=== PATIENT | female | born 1930 | race Caucasian/White ===

== ENCOUNTER 2018-02-11 22:51 | Inpatient (IN) | payer OTHER, MEDICARE ==
[~2018-02-11] VITALS: Ht 147.3 cm; Wt 57.7 kg
[~2018-02-11 22:51] MED LIST: ASPIRIN81 M1 PO; CALCIUM + D 6001 TAB PO; COLACE100 MG PO; FISH OIL CONC1000 MG PO; GLUCOSAMINE CHO1 CA1 PO; HYZAAR 12.5 MG-1 TAB PO; LEVOTHYROXINE0.05 MG PO; LOPRESSOR 25MG25 MG PO; MULTIVITAMIN1 TAB PO; NORVASC 5MG TAB5 MG PO; XANAX0.5 MG PO; ZOCOR 40MG TAB40 MG PO
--- NOTE | 2018-02-11 23:55 | ED UPPER/LOWER EXTREMITY COMPL ---
History of Present Illness General Chief Complaint: Lower Extremity Problems Stated Complaint: "PAIN IN UPPER RT LEG" Source: patient, family, old records Exam Limitations: no limitations Vital Signs & Intake/Output Vital Signs & Intake/Output Vital Signs Date Time Temp Pulse Resp B/P B/P Pulse O2 O2 Flow FiO2 Mean Ox Delivery Rate 02/12 1123 97.3 53 18 112/50 95 Room Air 02/12 0829 97.4 63 18 138/50 02/12 0828 97.4 63 18 138/50 02/12 0828 97.4 63 18 138/50 02/12 0824 97.4 63 18 138/50 96 Room Air 02/12 0614 97.2 91 20 129/83 95 Room Air 02/12 0321 86 20 146/60 95 Room Air 02/12 0124 59 20 110/60 96 Room Air 02/12 0105 Room Air 02/11 2307 98.6 65 18 176/55 96 Room Air ED Intake and Output 02/12 0000 02/11 1200 Intake Total Output Total Balance Patient 128 lb Weight Weight Estimated Measurement Method Allergies Coded Allergies: NO KNOWN ALLERGIES (01/24/16) Triage Note: RECEIVED 87 YO FEMALE C/O SEVERE RIGHT GROIN AREA PAIN RADIATING TO RIGHT THIGH, STARTED WEDNESDAY R THIGH AREA PAIN PRIMARILY. PT SEEN DR CAMPOS WEDNESDAY, XRAY DONE AND PRESCRIBED MELOXICAM. PT REPORTS PAIN BECAME SEVERE TONIGHT. Triage Nurses Notes Reviewed? yes HPI: On Wednesday the patient noticed that she was having pain in her right hip all moving her right foot from the gas pedal to the brake pedal. By Wednesday the pain escalated to the point that it hurts to move. Patient went to see Howard Sotomayor MD. She had x-rays in his office which showed arthritis. She was put on Mobic and sent home. Patient was told that the next absolute be a cortisone injection followed by an MRI if the Mobic didn't work. Tonight the patient was watching TV and she moved her foot off the ottoman to go to bed when she had a sudden increase in pain. Now she has pain with any movement. The pain is radiating down into her right thigh. The pain is constant. The pain is 10 out of 10. (Kathy SMITH,Toy Giraldo) Reconcile Medications Amlodipine Besylate (Norvasc) 5 MG TABLET 1 TAB PO DAILY BP (Reported) Amoxicillin 500 MG CAPSULE 4 CAP PO AD PRN 1 HR PRIOR TO DENTAL APPT ( Reported) Aspirin (Ecotrin*) 81 MG TABLET.DR 1 TAB PO DAILY HEART/BLOOD (Reported) Calcium Carbonate/Vitamin D3 (Calcium 500 + D Tablet) (Unknown Strength) TABLET (Unknown Dose) PO DAILY SUPPLEMENT (Reported) Docusate Sodium (Colace) 100 MG CAPSULE 1 CAP PO DAILY STOOL SOFTENER ( Reported) Gluc 2KCL/Chondr/Cole Hy/Hy AC (Glucosamine & Chondroitin Cap) (Unknown Strength ) CAPSULE (Unknown Dose) PO DAILY SUPPLEMENT (Reported) Levothyroxine Sodium 75 MCG TABLET 1 TAB PO DAILY THYROID (Reported) Losartan/Hydrochlorothiazide (Losartan-Hctz 100-12.5 MG Tab) 100 MG-12.5 MG TABLET 1 TAB PO DAILY BP (Reported) Meloxicam 15 MG TABLET 1 TAB PO DAILY PAIN/INFLAMMATION (Reported) Metoprolol Tartrate 25 MG TABLET 1 TAB PO BID HEART/BP (Reported) Multiple Vitamin (Multivitamins) 1 EACH TABLET 1 TAB PO DAILY SUPPLEMENT ( Reported) [place]-3S/Dha/Epa/Fish Oil (Fish Oil 1,000 MG Softgel) (Unknown Strength) CAPSULE (Unknown Dose) PO DAILY SUPPLEMENT (Reported) Simvastatin (Zocor*) 40 MG TABLET 1 TAB PO DAILY CHOLESTEROL (Reported) (Danay SMITH,Quinten Veras) Past History Travel History Traveled to [place] past 21 day No Medical History Any Pertinent Medical History? 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 No (Kathy SMITH,Toy Giraldo) Review of Systems Review of Systems Constitutional: Reports: no symptoms. Respiratory: Reports: no symptoms. Cardiovascular: Reports: no symptoms. Musculoskeletal: Reports: see HPI. Neurological/Psychological: Reports: no symptoms. Immunological: Reports: no symptoms. (Kathy SMITH,Toy Giraldo) Physical Exam Physical Exam General Appearance: well developed/nourished, alert, awake, anxious, moderate distress Head: atraumatic, normal appearance Eyes: Bilateral: PERRL, EOMI. Ears, Nose, Throat: normal pharynx, normal ENT inspection, hearing grossly normal Neck: normal inspection, supple, full range of motion (Kathy SMITH,Toy Giraldo) Progress Differential Diagnosis: dislocation, fracture, sprain, tendon injury Plan of Care: Orders Procedure Date/time Status Regular Diet 02/12 B Active Admit to inpatient 02/12 1309 Active PT Evaluate & Treat 02/12 253 Active URINALYSIS 02/12 253 Complete COMPREHENSIVE METABOLIC PANEL 02/12 253 Complete CBC WITHOUT DIFFERENTIAL 02/12 253 Complete CASE MANAGEMENT CONSULT 02/12 253 Active Theraputic Activities 15 Min 02/12 UNK Complete MOBILITY GOAL STATUS 02/12 UNK Complete MOBILITY CURRENT STATUS 02/12 UNK Complete PT EVAL MOD COMPLEX 30 MIN 02/12 UNK Complete Current Medications Sig/Alise Start time Last Medication Dose Stop Time Status Admin Atorvastatin Calcium 20 MG 1700 02/12 1700 UNVr (Lipitor) Amlodipine Besylate 5 MG DAILY 02/12 0900 UNVr 02/12 (Norvasc) 0828 Aspirin 81 MG DAILY 02/12 0900 UNVr 02/12 (Aspirin) 0829 Hydrochlorothiazide 25 MG DAILY 02/12 0900 UNVr 02/12 (Hydrodiuril) 0828 Losartan Potassium 100 MG DAILY 02/12 0900 UNVr 02/12 (Cozaar) 0829 Metoprolol Tartrate 25 MG BID 02/12 0900 UNVr 02/12 (Lopressor) 0828 Levothyroxine Sodium 0.05 MG DAILY AC 02/12 0700 UNVr 02/12 (Synthroid) 0829 Laboratory Tests 02/12/18 0625: Urine Color YEL, Urine Clarity HAZY H, Urine pH 6.5, Ur Specific [place] 1.020, Urine Protein NEG, Urine Ketones NEG, Urine Nitrite NEG, Urine Bilirubin NEG, Urine Urobilinogen 0.2, Ur Leukocyte Esterase LARGE H, Ur Microscopic SEDIMENT EXAMINED, Urine WBC 1-3 H, Ur Epithelial Cells FEW, Urine Bacteria FEW H, Urine Hemoglobin NEG, Urine Glucose NEG 02/12/18 0320: Anion Gap 13, Estimated GFR 59 L, BUN/Creatinine Ratio 38.9 H, Glucose 108 H, Calcium 10.0, Total Bilirubin 0.5, AST 28, ALT 35, Alkaline Phosphatase 70, Total Protein 6.9, Albumin 4.3, Globulin 2.6, Albumin/Globulin Ratio 1.7, CBC w Diff NO MAN DIFF REQ, RBC 3.81 L, MCV 99.3 H, MCH 33.2 H, MCHC 33.5, RDW 13.8 , MPV 8.8, Gran % 85.5 H, Lymphocytes % 9.6 L, Monocytes % 3.9, Eosinophils % 0.4, Basophils % 0.6, Absolute Granulocytes 9.4 H, Absolute Lymphocytes 1.1 L, Absolute Monocytes 0.4, Absolute Eosinophils 0, Absolute Basophils 0.1 Diagnostic Imaging: Viewed by Me: CT Scan. Discussed w/RAD: CT Scan. Radiology Impression: PATIENT: VIVIAN BRISENO PRESENT AGE: 87 PATIENT ACCOUNT NO: [id number] : [birth year] LOCATION: [facility] ORDERING PHYSICIAN: Toy Chavez MD SERVICE DATE: 02/11/18 EXAM TYPE: CAT - CT PELVIS WO IV CONTRAST EXAMINATION: CT PELVIS WITHOUT CONTRAST CLINICAL INFORMATION: Pain with flexion of right hip. COMPARISON: None TECHNIQUE : Helical scanning was performed with submillimeter collimation through the pelvis. Sagittal and coronal multiplanar 2-D reconstructions were obtained. DLP: 930 mGy-cm FINDINGS: PELVIS: No pelvic mass. The bladder is unremarkable. The visualized bowel demonstrates no inflammatory changes. No pelvic lymphadenopathy. Diffuse atherosclerotic calcifications of the vasculature. No hip joint effusion. No abdominal wall hernia. OSSEOUS STRUCTURES: No acute fracture or malalignment. The femoral heads are well-seated within their acetabula. Mild degenerative changes of both hips with joint space narrowing. Chondrocalcinosis present. Small osteophytes. Moderate degenerative changes of the lower lumbar spine. The sacroiliac joints and pubic symphysis are intact. Transitional anatomy of the lumbosacral junction. IMPRESSION: No acute osseous abnormality. Mild degenerative changes of both hips. Prominent degenerative changes at the lower lumbar spine. DICTATED BY: Atiya SMITH,Caio DATE/TIME DICTATED:02/12/18123 PHYSICAL THERAPIST AIDE:BERNA DATE/TIME TRANSCRIBED:123 CONFIDENTIAL, DO NOT COPY WITHOUT APPROPRIATE AUTHORIZATION. < Electronically signed in Other Vendor System> SIGNED BY: Atiya SMITH, Caio 02/12/18 0130 Hand-Off Endorsed To: Quinten Jon MD Endorsed Time: 0700 Pending: consult Comments: No relief with Tylenol with codeine. Patient still unable to ambulate after Percocet. At this point patient will remain in the emergency department for physical therapy as well as case management consultations. (Toy Chavez MD) Comments: 02/12/2018 7:08:43 AM patient signed out to me by Dr. 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 (Quinten Jon MD) Departure Departure Disposition: STILL A PATIENT Condition: Stable Referrals: Wally Pace MD (PCP/Family) Departure Forms: Customer Survey General Discharge Information (Toy Chavez MD) Departure Clinical Impression Primary Impression: Intractable pain Secondary Impressions: Hip pain Qualifiers: Laterality: right Qualified Code: M25.551 - Pain in right hip Unable to ambulate Admission Note Spoke With: Hiwot SMITH,Earl Tang Documentation of Exam: Documentation of any treatments & extenuating circumstances including Concerns Regarding Discharge (functional status, medication knowledge or non-compliance, living conditions, etc.) that warrant an admission rather than observation: Patient is experiencing severe right hip and groin pain with attempts to ambulate. She has been unable to do anything more than stand and pivot even with narcotic pain relievers orally. I do not feel this patient is capable of being discharged home given her inability to ambulate. She will very likely return in worse clinical condition including injury sustained due to falling. She would also be unable to comply with outpatient treatment or fulfill activities of daily living. I feel she requires hospitalization for pain control and physical therapy consultation. Orthopedic consultation should be considered as well. Additional imaging studies of the area of pain should also be considered. Given this patient's advanced age and medical comorbidities I predict her treatment and recovery will be prolonged and potentially complicated. I feel she will require a multiple day hospitalization. (Quinten Jon MD)
--- NOTE | 2018-02-12 01:30 | CT SCAN REPORT ---
EXAMINATION: CT PELVIS WITHOUT CONTRAST CLINICAL INFORMATION: Pain with flexion of right hip. COMPARISON: None TECHNIQUE: Helical scanning was performed with submillimeter collimation through the pelvis. Sagittal and coronal multiplanar 2-D reconstructions were obtained. DLP: 930 mGy-cm FINDINGS: PELVIS: No pelvic mass. The bladder is unremarkable. The visualized bowel demonstrates no inflammatory changes. No pelvic lymphadenopathy. Diffuse atherosclerotic calcifications of the vasculature. No hip joint effusion. No abdominal wall hernia. OSSEOUS STRUCTURES: No acute fracture or malalignment. The femoral heads are well-seated within their acetabula. Mild degenerative changes of both hips with joint space narrowing. Chondrocalcinosis present. Small osteophytes. Moderate degenerative changes of the lower lumbar spine. The sacroiliac joints and pubic symphysis are intact. Transitional anatomy of the lumbosacral junction. IMPRESSION: No acute osseous abnormality. Mild degenerative changes of both hips. Prominent degenerative changes at the lower lumbar spine.
[2018-02-12 03:27] LABS: ABSOLUTE BASOPHIL COUNT 0.1 /CUMM (0.0-0.2); ABSOLUTE EOSINOPHIL COUNT 0 /CUMM (0.0-0.7); ABSOLUTE GRANULOCYTE CT 9.4 /CUMM (1.4-6.5); ABSOLUTE LYMPH COUNT 1.1 /CUMM (1.2-3.4); ABSOLUTE MONOCYTE COUNT 0.4 /CUMM (0.10-0.60); BASOPHIL % 0.6 % (0.0-2.0); EOSINOPHIL % 0.4 % (0-5); GRANULOCYTE % 85.5 % (42.2-75.2); HEMATOCRIT 37.8 % (37-47); MEAN CORPUSCULAR HGB 33.2 PG (27.0-31.0); MEAN CORPUSCULAR HGB CONC 33.5 G/DL (33.0-37.0); MEAN CORPUSCULAR VOLUME 99.3 FL (81.0-99.0); MEAN PLATELET VOLUME 8.8 FL (7.4-10.4); PLATELET COUNT 244 /CUMM (130-400); RBC DISTRIBUTION WIDTH 13.8 % (11.5-14.5); RED BLOOD CELL CT 3.81 /CUMM (4.20-5.40)
[2018-02-12] MEDS ORDERED: LEVOTHYROXINE75 MCG PO (12:23)
[2018-02-12] MEDS ORDERED: LOSARTAN-HCTZ1 EACH PO (12:24)
[2018-02-12] MEDS ORDERED: CALCIUM 500 +1 EAC5 PO (12:24)
[2018-02-12] MEDS ORDERED: GLUCOSAMINE &1 EAC1 PO (12:24)
[2018-02-12] MEDS ORDERED: FISH OIL 1,0001 EAC5 PO (12:25)
[2018-02-12] MEDS ORDERED: ASPIRIN EC81 M1 PO (12:25)
[2018-02-12] MEDS ORDERED: ZOCOR40 M1 PO (12:25)
[2018-02-12] MEDS ORDERED: MULTIVITAMINS1 EAC9 PO (12:25)
[2018-02-12] MEDS ORDERED: NORVASC5 M1 PO (12:26)
[2018-02-12] MEDS ORDERED: COLACE100 M1 PO (12:26)
[2018-02-12] MEDS ORDERED: METOPROLOL TART25 M1 PO (12:26)
[2018-02-12] MEDS ORDERED: MELOXICAM15 M1 PO (12:27)
[2018-02-12] MEDS ORDERED: AMOXICILLIN500 M2 PO (12:27)
--- NOTE | 2018-02-12 16:39 | History & Physical ---
Evelin Gregorio 02/12/18 1622: General Information and HPI MD Statement: I have seen and personally examined VIVIAN BRISENO and documented this H&P. The patient is a 87 year old F who presented with a patient stated chief complaint of [right leg pain]. Source of Information: patient Exam Limitations: no limitations History of Present Illness: Patient is a 87-year-old female with past medical history of breast cancer status post mastectomy, osteoarthritis, cataracts,coronary artery disease, hypertension, hypercholesterolemia, and hypothyroidism who was brought in by ambulance for severe right groin pain radiating to her right thigh. Patient reports that she started having pain in the right groin last Wednesday while she was driving her car. She noticed she had severe pain moving her right foot from the gas pedal to the brake pedal. She ignored it initially thinking it was just regular aches and pains. However by Wednesday she was having so much pain that it was difficult to ambulate. She saw , the next day for the same. X-rays done at his office showed arthritis and patient was prescribed Mobic. He also told her that she might need a cortisone shot and an MRI if symptoms don't get better. Mobic did relieve her symptoms to some extent, however the pain never went away completely. Today patient had intense pain while trying to move from her chair to the bed. She denies any numbness, tingling, nausea or vomiting, chest pain, palpitations, fevers, chills, urinary or bowel symptoms. Pain is located over her right groin radiating down her right thigh, 10 / 10 in intensity. She denies any trauma, falls, twisting or turning off her legs. CT scan done in the ED showed no abnormality, mild degenerative changes of both hips and prominent degenerative site changes of her lower spine. Allergies/Medications Allergies: Coded Allergies: NO KNOWN ALLERGIES (01/24/16) Home Med list Amlodipine Besylate (Norvasc) 5 MG TABLET 1 TAB PO DAILY BP (Reported) Amoxicillin 500 MG CAPSULE 4 CAP PO AD PRN 1 HR PRIOR TO DENTAL APPT ( Reported) Aspirin (Ecotrin*) 81 MG TABLET.DR 1 TAB PO DAILY HEART/BLOOD (Reported) Calcium Carbonate/Vitamin D3 (Calcium 500 + D Tablet) (Unknown Strength) TABLET (Unknown Dose) PO DAILY SUPPLEMENT (Reported) Docusate Sodium (Colace) 100 MG CAPSULE 1 CAP PO DAILY STOOL SOFTENER ( Reported) Gluc 2KCL/Chondr/Cole Hy/Hy AC (Glucosamine & Chondroitin Cap) (Unknown Strength ) CAPSULE (Unknown Dose) PO DAILY SUPPLEMENT (Reported) Levothyroxine Sodium 75 MCG TABLET 1 TAB PO DAILY THYROID (Reported) Losartan/Hydrochlorothiazide (Losartan-Hctz 100-12.5 MG Tab) 100 MG-12.5 MG TABLET 1 TAB PO DAILY BP (Reported) Meloxicam 15 MG TABLET 1 TAB PO DAILY PAIN/INFLAMMATION (Reported) Metoprolol Tartrate 25 MG TABLET 1 TAB PO BID HEART/BP (Reported) Multiple Vitamin (Multivitamins) 1 EACH TABLET 1 TAB PO DAILY SUPPLEMENT ( Reported) [place]-3S/Dha/Epa/Fish Oil (Fish Oil 1,000 MG Softgel) (Unknown Strength) CAPSULE (Unknown Dose) PO DAILY SUPPLEMENT (Reported) Simvastatin (Zocor*) 40 MG TABLET 1 TAB PO DAILY CHOLESTEROL (Reported) Past History Travel History Traveled to [place] past 21 day No Medical History Neurological: NONE EENT: NONE Cardiovascular: hypertension, hyperlipidemia Respiratory: NONE Gastrointestinal: NONE Hepatic: NONE Renal: NONE Musculoskeletal: NONE Psychiatric: NONE Endocrine: hypothyroidism Blood Disorders: NONE Cancer(s): NONE 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 EENTM: Reports: no symptoms. Cardiovascular: Reports: no symptoms. Respiratory: Reports: no symptoms. GI: Reports: no symptoms. Genitourinary: Reports: no symptoms. Musculoskeletal: Reports: muscle pain, muscle stiffness. Skin: Reports: no symptoms. Exam & Diagnostic Data Last 24 Hrs of Vital Signs/I&O Vital Signs Date Time Temp Pulse Resp B/P B/P Pulse O2 O2 Flow FiO2 Mean Ox Delivery Rate 02/12 1123 97.3 53 18 112/50 95 Room Air 02/12 0829 97.4 63 18 138/50 02/12 0828 97.4 63 18 138/50 02/12 0828 97.4 63 18 138/50 02/12 0824 97.4 63 18 138/50 96 Room Air 02/12 0614 97.2 91 20 129/83 95 Room Air 02/12 0321 86 20 146/60 95 Room Air 02/12 0124 59 20 110/60 96 Room Air 02/12 0105 Room Air 02/11 2307 98.6 65 18 176/55 96 Room Air Intake & Output 02/12 1600 02/12 0800 02/12 0000 Intake Total 240 Output Total Balance 240 Intake, Oral 240 Patient 58.06 kg Weight Weight Estimated Measurement Method Physical Exam General Appearance Alert, Oriented X3, Cooperative, No Acute Distress Skin No Rashes, No Breakdown, No Significant Lesion Skin Temp/Moisture Exam: Warm/Dry HEENT Atraumatic, PERRLA, EOMI Neck Supple Cardiovascular Regular Rate, Normal S1, Normal S2, No Murmurs Lungs Clear to Auscultation, Normal Air Movement Abdomen Normal Bowel Sounds Neurological Normal Speech, Normal Tone, Sensation Intact, Cranial Nerves 3-12 NL, Reflexes 2+, severe restriction of motion of the right lower extremity. Extremities No Clubbing, No Cyanosis, No Edema Last 24 Hrs of Labs/Joey: Laboratory Tests 02/12/18 0625: Urine Color YEL, Urine Clarity HAZY H, Urine pH 6.5, Ur Specific [place] 1.020, Urine Protein NEG, Urine Ketones NEG, Urine Nitrite NEG, Urine Bilirubin NEG, Urine Urobilinogen 0.2, Ur Leukocyte Esterase LARGE H, Ur Microscopic SEDIMENT EXAMINED, Urine WBC 1-3 H, Ur Epithelial Cells FEW, Urine Bacteria FEW H, Urine Hemoglobin NEG, Urine Glucose NEG 02/12/18 0320: Anion Gap 13, Estimated GFR 59 L, BUN/Creatinine Ratio 38.9 H, Glucose 108 H, Calcium 10.0, Total Bilirubin 0.5, AST 28, ALT 35, Alkaline Phosphatase 70, Total Protein 6.9, Albumin 4.3, Globulin 2.6, Albumin/Globulin Ratio 1.7, CBC w Diff NO MAN DIFF REQ, RBC 3.81 L, MCV 99.3 H, MCH 33.2 H, MCHC 33.5, RDW 13.8 , MPV 8.8, Gran % 85.5 H, Lymphocytes % 9.6 L, Monocytes % 3.9, Eosinophils % 0.4, Basophils % 0.6, Absolute Granulocytes 9.4 H, Absolute Lymphocytes 1.1 L, Absolute Monocytes 0.4, Absolute Eosinophils 0, Absolute Basophils 0.1 Assessment/Plan Assessment: Patient is a 87-year-old female with past medical history of breast cancer status post mastectomy, osteoarthritis, cataracts,coronary artery disease, hypertension, hypercholesterolemia, and hypothyroidism who was brought in by ambulance for severe right groin pain radiating to her right thigh. CT scan done in the ED showed no abnormality, mild degenerative changes of both hips and prominent degenerative site changes of her lower spine. Assessment and plan #1 Right hip/groin pain: Differentials could be avascular necrosis, osteoarthritis, bursitis, impingement, metastasis from breast cancer -Admit patient to [facility] -Vitals per protocol -CT shows evidence of degenerative changes in both hips. No fractures noted. -MRI lumbar spine/hip ordered -X-ray femurs ordered a -Optimal pain control with IV morphine and Percocet -Orthopedic consult appreciated -Patient might need cortisone shots if there is no improvement in pain -Physical therapy consult -Placement for short-term rehabilitation. #2 Hyperkalemia likely secondary to dehydration -Monitor BMP -Gentle hydration with IV normal saline Continue home medications for hypertension, hypothyroidism and hypercholesterolemia DVT prophylaxis subcutaneous Lovenox Full code Severe pain pathway. As Ranked By This Provider Problem List: 1. Intractable pain 2. Hip pain Qualifiers Laterality: right Qualified Code: M25.551 - Pain in right hip Core Measures/Misc (07/18) Acute Coronary Syndrome ACS Diagnosis: No Congestive Heart Failure Congestive Heart Failure Diagnosis No Cerebrovascular Accident CVA/TIA Diagnosis: No VTE (View Protocol) VTE Risk Factors Age>40 No Mechanical VTE Prophylaxis d/t N/A MechProphylax Ordered No VTE Pharm Prophylaxis d/t NA PharmProphylax ordered Sepsis (View protocol) Sepsis Present: No [facility]35: Attending MD Review Statement Attending Statement Attending MD Statement: examined this patient, discuss w/resident/PA/CHAMBER WALKER, agreed w/resident/PA/CHAMBER WALKER, discussed with family, reviewed EMR data (avail), discussed with nursing, discussed with case mgmt, reviewed images, amended to note Attending Assessment/Plan: SEEN AND EXAMINED IN THE ED INDEPENDENTLY Pt with above issues now with severe intractable pain of the hip Intractable pain Gait difficulty REC Rec MRI LS spine LS spine and femur xray bone scan Pain control
[2018-02-12 19:56] VITALS: BP 152/72
--- NOTE | 2018-02-12 20:44 | Cons- Orthopedic ---
General Information and HPI Consulting Request Date of Consult: 02/12/18 Requested By: Wm Varela MD Reason for Consult: Right groin pain Source of Information: patient, old records Exam Limitations: no limitations History of Present Illness: This patient is an 87-year-old woman who was admitted with a history of severe right groin pain. She was seen in our office recently for right thigh pain. Evaluation in the office revealed mild degenerative changes of the right hip. No lesions were noted in the femur or hip. Symptoms at that time appeared to be out of proportion to findings concerning the hip. She describes radiation of pain down the leg. Most of the pain is isolated to the right thigh and groin. Weightbearing aggravated symptoms. At the time of the previous office visit, patient was prescribed meloxicam. She states that the medication did help but she had a sudden increase in symptoms while sitting in a car Allergies/Medications Allergies: Coded Allergies: NO KNOWN ALLERGIES (01/24/16) Home Med List: Amlodipine Besylate (Norvasc) 5 MG TABLET 1 TAB PO DAILY BP (Reported) Amoxicillin 500 MG CAPSULE 4 CAP PO AD PRN 1 HR PRIOR TO DENTAL APPT ( Reported) Aspirin (Ecotrin*) 81 MG TABLET.DR 1 TAB PO DAILY HEART/BLOOD (Reported) Calcium Carbonate/Vitamin D3 (Calcium 500 + D Tablet) (Unknown Strength) TABLET (Unknown Dose) PO DAILY SUPPLEMENT (Reported) Docusate Sodium (Colace) 100 MG CAPSULE 1 CAP PO DAILY STOOL SOFTENER ( Reported) Gluc 2KCL/Chondr/Cole Hy/Hy AC (Glucosamine & Chondroitin Cap) (Unknown Strength ) CAPSULE (Unknown Dose) PO DAILY SUPPLEMENT (Reported) Levothyroxine Sodium 75 MCG TABLET 1 TAB PO DAILY THYROID (Reported) Losartan/Hydrochlorothiazide (Losartan-Hctz 100-12.5 MG Tab) 100 MG-12.5 MG TABLET 1 TAB PO DAILY BP (Reported) Meloxicam 15 MG TABLET 1 TAB PO DAILY PAIN/INFLAMMATION (Reported) Metoprolol Tartrate 25 MG TABLET 1 TAB PO BID HEART/BP (Reported) Multiple Vitamin (Multivitamins) 1 EACH TABLET 1 TAB PO DAILY SUPPLEMENT ( Reported) Caret-3S/Dha/Epa/Fish Oil (Fish Oil 1,000 MG Softgel) (Unknown Strength) CAPSULE (Unknown Dose) PO DAILY SUPPLEMENT (Reported) Simvastatin (Zocor*) 40 MG TABLET 1 TAB PO DAILY CHOLESTEROL (Reported) Past History Medical History Blood Transfusion Hx: Yes Neurological: TREMORS EENT: cataracts Cardiovascular: hypertension, hyperlipidemia Respiratory: NONE Gastrointestinal: constipation Hepatic: NONE Renal: NONE Musculoskeletal: ARTHRITIS Psychiatric: NONE Endocrine: hypothyroidism Blood Disorders: NONE Cancer(s): breast cancer [employer]PER[employer] INSPECTION/Reproductive: NONE Surgical History Pertinent Surgical History: LEFT MASTECTOMY BILAT KNEE REPLACEMENTS HYSTERECTOMY CATARACT BONE SPUR/BUNIONECTOMY L CARPAL TUNNEL REPAIR TONSILLECTOMY Psychosocial History Where Do You Live? Home Smoking Status: Never Smoked ETOH Use: denies use Illicit Drug Use: denies illicit drug use Exam & Diagnostic Data Vital Signs and I&O Vital Signs Date Time Temp Pulse Resp B/P B/P Pulse O2 O2 Flow FiO2 Mean Ox Delivery Rate 02/13 1956 97.8 71 18 152/72 95 Room Air 02/12 1807 97.9 68 18 144/60 95 Room Air 02/12 1123 97.3 53 18 112/50 95 Room Air 02/12 0829 97.4 63 18 138/50 02/12 0828 97.4 63 18 138/50 02/12 0828 97.4 63 18 138/50 02/12 0824 97.4 63 18 138/50 96 Room Air 02/12 0614 97.2 91 20 129/83 95 Room Air 02/12 0321 86 20 146/60 95 Room Air 02/12 0124 59 20 110/60 96 Room Air 02/12 0105 Room Air 02/11 2307 98.6 65 18 176/55 96 Room Air Intake & Output 02/12 1600 02/12 0800 02/12 0000 02/11 1600 02/11 0800 02/11 0000 Intake Total 240 Output Total Balance 240 Intake, Oral 240 Patient 128 lb Weight Weight Estimated Measurement Method Physical Exam: The patient was examined while in bed. She answered questions appropriately. She has a tremor. Examination the right lower extremity revealed no rotatory deformity. No leg length discrepancy. She did not hold the leg in any unnatural position. Rotation of the right hip causes some apprehension but no reproduction of her pain in the groin. Straight leg raise also causes apprehension but no definite straight leg raise on the right or the left. Calf is soft and nontender. Normal gross sensation and palpable pulses distally which appear to be symmetric. No tenderness of the lumbar spine Imaging Results: Reviewed the CT scan that was done on admission. This study revealed some mild degenerative changes of the hip. No other definite lesions. Assessment/Plan Assessment/Plan Right groin and thigh pain-though patient has some osteoarthritis of her right hip, the severity of his symptoms do not match the radiographic findings or physical exam findings in regards to the hip itself. Concern is that the source of her right thigh and groin pain may be from her lumbar spine. Would recommend obtaining plain x-rays of the lumbar spine with consideration of obtaining MRI to assess for foraminal stenosis. Patient does have degenerative changes of the lumbar spine. Also, with her previous medical history, further imaging should be done in order to rule out other lesion Consult Acknowledgment - Thank you for your consult request. Attending MD Review Statement Attending Statement Attending MD Statement: examined this patient, discuss w/resident/PA/CREAM CHEESE MAKER
[2018-02-12 22:00] VITALS: BP 148/60
[2018-02-13 08:45] LABS: ABSOLUTE BASOPHIL COUNT 0 /CUMM (0.0-0.2); ABSOLUTE EOSINOPHIL COUNT 0.1 /CUMM (0.0-0.7); ABSOLUTE GRANULOCYTE CT 3.6 /CUMM (1.4-6.5); ABSOLUTE LYMPH COUNT 1.9 /CUMM (1.2-3.4); ABSOLUTE MONOCYTE COUNT 0.7 /CUMM (0.10-0.60)
[2018-02-13 08:53] LABS: BASOPHIL % 0.6 % (0.0-2.0); EOSINOPHIL % 1.4 % (0-5); GRANULOCYTE % 57.3 % (42.2-75.2); MEAN CORPUSCULAR HGB 33.8 PG (27.0-31.0); MEAN CORPUSCULAR VOLUME 99.3 FL (81.0-99.0); PLATELET COUNT 208 /CUMM (130-400); RBC DISTRIBUTION WIDTH 13.2 % (11.5-14.5); RED BLOOD CELL CT 3.28 /CUMM (4.20-5.40); WHITE BLOOD CELL COUNT 6.3 /CUMM (4.8-10.8)
[2018-02-13 08:57] LABS: HEMATOCRIT 32.5 % (37-47)
--- NOTE | 2018-02-13 10:34 | PN- Housestaff ---
Dusty SMITH,[facility] 02/13/18 1034: Subjective Follow-up For: Pelvic pain Subjective: No acute events. Patient states she stills has difficulty lifting her R thigh. Review of Systems Constitutional: Reports: see HPI. Objective Last 24 Hrs of Vital Signs/I&O Vital Signs Date Time Temp Pulse Resp B/P B/P Pulse O2 O2 Flow FiO2 Mean Ox Delivery Rate 02/13 1227 Room Air 02/13 0859 53 108/50 02/13 0858 53 108/50 02/13 0858 53 108/50 02/12 2200 98.4 68 18 148/60 96 Room Air 02/12 2148 68 148/60 02/12 1956 97.8 71 18 152/72 95 Room Air 02/12 1807 97.9 68 18 144/60 95 Room Air Intake & Output 02/13 1600 02/13 0800 02/13 0000 Intake Total 120 240 Output Total 200 300 Balance -80 -60 Intake, Oral 120 240 Number 0 Bowel Movements Output, Urine 200 300 Patient 127 lb Weight Weight Bed scale Measurement Method Physical Exam General Appearance: Alert, Oriented X3, Cooperative Cardiovascular: Regular Rate, Normal S1, Normal S2 Lungs: Clear to Auscultation, Normal Air Movement Abdomen: Normal Bowel Sounds, Soft, No Tenderness Extremities: LLE 5/5 strength. Patient unable to rase R leg. Plantar flexion and extension of R foot normal. Vascular: 2+ radial pulses. Assessment/Plan Assessment: A: 87-year-old female with past medical history of breast cancer status post mastectomy, osteoarthritis, cataracts,coronary artery disease, hypertension, hypercholesterolemia, and hypothyroidism who was brought in by ambulance for severe right groin pain radiating to her right thigh. CT scan done in the ED showed no abnormality, mild degenerative changes of both hips and prominent degenerative site changes of her lower spine. Assessment and plan #1 Right hip/groin pain: Differentials could be avascular necrosis, osteoarthritis, bursitis, impingement, metastasis from breast cancer -CT shows evidence of degenerative changes in both hips. No fractures noted. -f/u MRI lumbar spine/hip -f/u b/l X-ray femurs -f/u pain control -f/u ortho consult -Physical therapy consult -Placement for short-term rehabilitation. #2 Hyperkalemia likely secondary to dehydration - resoled -Monitor BMP -Gentle hydration with IV normal saline #hyponaremia Na 135 -cont to monitor #Continue home medications for hypertension, hypothyroidism and hypercholesterolemia #DVT prophylaxis subcutaneous Lovenox #Full code Problem List: 1. Hip pain Pain Ratin Pain Location: R groin Pain Goal: Pain 4 or less Pain Plan: pain pathway Tomorrow's Labs & Rationales: CBC Hiwot SMITH,[facility] 02/13/18 1249: Attending MD Review Statement Attending Statement Attending MD Statement: examined this patient, discuss w/resident/PA/RECOVERY AUDITOR, agreed w/resident/PA/RECOVERY AUDITOR, discussed with family, reviewed EMR data (avail), discussed with nursing, discussed with case mgmt, reviewed images, amended to note Attending Assessment/Plan: Pt with above issues now with severe intractable pain of the hip Intractable pain Gait difficulty REC Rec MRI LS spine LS spine and femur xray bone scan Pain control
--- NOTE | 2018-02-13 11:37 | RADIOLOGY REPORT ---
EXAMINATION: XR FEMUR, LEFT XR FEMUR, RIGHT CLINICAL INFORMATION: Hip pain. Assess for fracture, metastatic disease. Prior history breast cancer. COMPARISON: CT pelvis 02/12/2018. TECHNIQUE: Each femur is imaged in AP x2, frog lateral, and crosstable lateral projections. There are a total of 8 views, 4 for each side. FINDINGS: There is no fracture or dislocation. Mild narrowing superior medial right hip joint is seen. There is no erosive change or chondrocalcinosis. There is borderline spurring from both greater trochanters. The bilateral femoral shafts are unremarkable. There is prior bilateral knee arthroplasty. The hardware appears intact. There is no osteolysis. There may be trace suprapatellar effusion on the left. No significant effusion seen. IMPRESSION: No fracture, dislocation, or destructive process.
[2018-02-13 15:18] VITALS: BP 126/56
[2018-02-13 21:24] VITALS: BP 124/68
[2018-02-14 06:53] VITALS: BP 142/62
[2018-02-14 08:27] LABS: ABSOLUTE BASOPHIL COUNT 0 /CUMM (0.0-0.2); ABSOLUTE EOSINOPHIL COUNT 0.1 /CUMM (0.0-0.7); ABSOLUTE MONOCYTE COUNT 0.6 /CUMM (0.10-0.60); BASOPHIL % 0.3 % (0.0-2.0); MEAN PLATELET VOLUME 8.8 FL (7.4-10.4)
[2018-02-14 08:49] LABS: ABSOLUTE GRANULOCYTE CT 7.4 /CUMM (1.4-6.5); ABSOLUTE LYMPH COUNT 1.5 /CUMM (1.2-3.4); EOSINOPHIL % 0.8 % (0-5); GRANULOCYTE % 76.4 % (42.2-75.2); PLATELET COUNT 245 /CUMM (130-400); RBC DISTRIBUTION WIDTH 13.6 % (11.5-14.5); RED BLOOD CELL CT 3.88 /CUMM (4.20-5.40)
[2018-02-14 08:54] LABS: HEMATOCRIT 38.8 % (37-47); WHITE BLOOD CELL COUNT 9.7 /CUMM (4.8-10.8)
--- NOTE | 2018-02-14 09:56 | PN- Housestaff ---
Subjective Follow-up For: Groin pain Subjective: No acute events overnight. Continues to have difficulty lifting R leg. Review of Systems Constitutional: Reports: see HPI. Objective Last 24 Hrs of Vital Signs/I&O Vital Signs Date Time Temp Pulse Resp B/P B/P Pulse O2 O2 Flow FiO2 Mean Ox Delivery Rate 02/14 1354 98.2 66 18 118/56 94 Room Air 02/14 1216 Room Air 02/14 1209 Room Air 02/14 0856 64 140/66 02/14 0856 64 140/66 02/14 0856 64 140/66 02/14 0653 97.5 62 20 142/62 93 02/13 2124 97.8 70 18 124/68 94 Room Air 02/13 2120 70 124/68 Intake & Output 02/14 1600 02/14 0800 02/14 0000 Intake Total 720 120 240 Output Total 350 300 800 Balance 370 -180 -560 Intake, Oral 720 120 240 Output, Urine 350 300 800 Physical Exam General Appearance: Alert, Oriented X3, Cooperative, resting RUE tremors Cardiovascular: Regular Rate, Normal S1, Normal S2 Lungs: Clear to Auscultation, Normal Air Movement Abdomen: Normal Bowel Sounds, Soft, No Tenderness Extremities: unable to lift R leg. no pain with passive ROM Vascular: 2+ radial pulses Current Medications: Current Medications Sig/Alise Start time Last Medication Dose Route Stop Time Status Admin Acetaminophen 650 MG Q4P PRN 02/12 1645 AC PO Amlodipine Besylate 5 MG DAILY 02/13 900 AC 02/14 PO 0856 Aspirin Buffered 81 MG DAILY 02/13 09 AC 02/14 PO 0856 Atorvastatin Calcium 20 MG 1700 02/12 1700 AC 02/13 PO 1718 Docusate Sodium 100 MG DAILY NEEDED PRN 02/14 0615 DC PO Docusate Sodium 100 MG DAILY 02/13 09 AC 02/14 PO 0855 Enoxaparin Sodium 40 MG DAILY 02/13 09 AC 02/14 SC 0856 Hydrochlorothiazide 25 MG DAILY 02/12 09 AC 02/14 PO 0856 Levothyroxine Sodium 0.075 MG DAILY AC 02/13 0700 AC 02/14 PO 0600 Losartan Potassium 100 MG DAILY 02/13 09 AC 02/14 PO 0856 Metoprolol Tartrate 25 MG BID 02/12 2100 AC 02/14 PO 0856 Morphine Sulfate 2 MG Q6P PRN 02/12 1645 AC IV Ondansetron HCl 4 MG ONCE ONE 02/13 1530 DC 02/13 PO 02/13 1531 1527 Oxycodone/ 1 TAB Q4P PRN 02/12 1730 AC 02/14 Acetaminophen PO 0856 Senna 187 MG AT BEDTIME 02/14 2100 AC PO Last 24 Hrs of Lab/Joey Results Last 24 Hrs of Labs/Mics: Laboratory Tests 02/14/18 0758: Anion Gap 8, Estimated GFR 52 L, BUN/Creatinine Ratio 28.0 H, CBC w Diff NO MAN DIFF REQ, RBC 3.88 L, MCV 100.0 H, MCH 33.0 H, MCHC 33.0, RDW 13.6, MPV 8.8, Gran % 76.4 H, Lymphocytes % 15.9 L, Monocytes % 6.6, Eosinophils % 0.8, Basophils % 0.3, Absolute Granulocytes 7.4 H, Absolute Lymphocytes 1.5, Absolute Monocytes 0.6, Absolute Eosinophils 0.1, Absolute Basophils 0 Assessment/Plan Assessment: A: 87-year-old female with past medical history of breast cancer status post mastectomy, osteoarthritis, cataracts,coronary artery disease, hypertension, hypercholesterolemia, and hypothyroidism who was brought in by ambulance for severe right groin pain radiating to her right thigh. CT scan done in the ED showed no abnormality, mild degenerative changes of both hips and prominent degenerative site changes of her lower spine. Assessment and plan #1 Right hip/groin pain: Differentials could be avascular necrosis, osteoarthritis, bursitis, impingement, metastasis from breast cancer -CT shows evidence of degenerative changes in both hips. No fractures noted. -b/l femur xray negative -MRI: No compression fractures or suspicious abnormal enhancement. Extensive lumbar spondylosis with a moderate leftward lumbar spinal curvature. 2. Right paracentral disc protrusion abutting the right L2 nerve root at L1-L2. Moderate right foraminal narrowing. Degenerative disc disease at L2-L3 contributing to mild central canal stenosis and left foraminal narrowing. Severe central canal stenosis with anterior subluxations at L3-L4 and L4-L5. Severe right foraminal narrowing at L3-L4. Exuberant facet arthropathy present as well. Desiccated disc bulge and moderate facet degeneration at L5-S1. Bulging disc abuts the exiting left L5 nerve root in the foramen. -f/u pain control -f/u ortho recs -Physical therapy consult -Placement for short-term rehabilitation. #2 Hyperkalemia likely secondary to dehydration - resoled -Monitor BMP -Gentle hydration with IV normal saline #hyponaremia Na 136, close to baseline 137 -cont to monitor #Continue home medications for hypertension, hypothyroidism and hypercholesterolemia #DVT prophylaxis subcutaneous Lovenox #Full code Problem List: 1. Groin pain Pain Ratin Pain Location: r groin Pain Goal: Pain 4 or less Pain Plan: pathway Tomorrow's Labs & Rationales: none
--- NOTE | 2018-02-14 11:14 | PN- Att Addend ---
Attending Addendum Attending Brief Note Events over the weekend noted, patient going down for an MRI of the affected areas. Cells with no step would be also orthopedic consultation requested she seems comfortable when she is sitting after the MRI and maybe get a PT evaluation Intake & Output 02/14 1600 02/14 0800 02/14 0000 02/13 1600 02/13 0802/13 0000 Intake Total 120 240 600 120 240 Output Total 300 800 200 300 Balance -180 -560 600 -80 -60 Intake, Oral 120 240 600 120 240 Number 0 Bowel Movements Output, Urine 300 800 200 300 Patient 127 lb Weight Weight Bed scale Measurement Method Current Medications Sig/Alise Start time Last Medication Dose Route Stop Time Status Admin Acetaminophen 650 MG Q4P PRN 02/12 1645 AC PO Amlodipine Besylate 5 MG DAILY 02/13 09 AC 02/14 PO 0856 Aspirin Buffered 81 MG DAILY 02/13 09 AC 02/14 PO 0856 Atorvastatin Calcium 20 MG 1700 02/12 1700 AC 02/13 PO 1718 Docusate Sodium 100 MG DAILY NEEDED PRN 02/14 0615 DC PO Docusate Sodium 100 MG DAILY 02/13 0900 AC 02/14 PO 0855 Enoxaparin Sodium 40 MG DAILY 02/13 0900 AC 02/14 SC 0856 Hydrochlorothiazide 25 MG DAILY 02/12 0900 AC 02/14 PO 0856 Levothyroxine Sodium 0.075 MG DAILY AC 02/13 0700 AC 02/14 PO 0600 Losartan Potassium 100 MG DAILY 02/13 0900 AC 02/14 PO 0856 Metoprolol Tartrate 25 MG BID 02/12 2100 AC 02/14 PO 0856 Morphine Sulfate 2 MG Q6P PRN 02/12 1645 AC IV Ondansetron HCl 4 MG ONCE ONE 02/13 1530 DC 02/13 PO 02/13 1531 1527 Oxycodone/ 1 TAB Q4P PRN 02/12 1730 AC 02/14 Acetaminophen PO 0856 Senna 187 MG AT BEDTIME 02/14 2100 AC PO Laboratory Tests 02/14/18 0758: Anion Gap 8, Estimated GFR 52 L, BUN/Creatinine Ratio 28.0 H, CBC w Diff NO MAN DIFF REQ, RBC 3.88 L, MCV 100.0 H, MCH 33.0 H, MCHC 33.0, RDW 13.6, MPV 8.8, Gran % 76.4 H, Lymphocytes % 15.9 L, Monocytes % 6.6, Eosinophils % 0.8, Basophils % 0.3, Absolute Granulocytes 7.4 H, Absolute Lymphocytes 1.5, Absolute Monocytes 0.6, Absolute Eosinophils 0.1, Absolute Basophils 0 02/13/18 0735: Anion Gap 10, Estimated GFR 59 L, BUN/Creatinine Ratio 33.3 H, CBC w Diff NO MAN DIFF REQ, RBC 3.28 L, MCV 99.3 H, MCH 33.8 H, MCHC 34.0, RDW 13.2, MPV 9.0, Gran % 57.3, Lymphocytes % 30.3, Monocytes % 10.4 H, Eosinophils % 1.4, Basophils % 0.6, Absolute Granulocytes 3.6, Absolute Lymphocytes 1.9, Absolute Monocytes 0.7 H, Absolute Eosinophils 0.1, Absolute Basophils 0 Vital Signs Date Time Temp Pulse Resp B/P B/P Pulse O2 O2 Flow FiO2 Mean Ox Delivery Rate 02/14 0856 64 140/66 02/14 0856 64 140/66 02/14 0856 64 140/66 02/14 0653 97.5 62 20 142/62 93 02/13 2124 97.8 70 18 124/68 94 Room Air 02/13 2120 70 124/68 02/13 1518 97.7 58 16 126/56 95 Room Air 02/13 1227 Room Air
[2018-02-14 13:54] VITALS: BP 118/56
--- NOTE | 2018-02-14 14:34 | MRI REPORT ---
EXAMINATION: MR LUMBAR SPINE WITHOUT AND WITH CONTRAST CLINICAL INFORMATION: Right hip pain. History of breast cancer. Rule out acute pathology. COMPARISON: None TECHNIQUE: MRI of the lumbar spine was obtained before and after intravenous administration of 7.6 mL Gadavist. FINDINGS: VERTEBRAL BODIES AND PARASPINAL STRUCTURES: There is a moderate leftward curvature of the lumbar spine. No compression fractures are seen. No suspicious enhancing osseous lesions are identified. No paraspinal soft tissue edema is seen. There are mild anterior subluxations at L4-L5 and L5-S1. A grade 2 anterolisthesis is visible at L3-L4. There is significant disc space narrowing at L3-L4 and L4-L5. Vacuum disc phenomenon and desiccation evident at L5-S1. There is moderate multilevel disc space narrowing with bulging discs and endplates spurring at the mid to lower thoracic levels. The imaged portions of the lungs are clear. A 2.5 cm cyst arises from the upper pole of the left kidney. The imaged bony pelvis is normal. CONUS MEDULLARIS AND CAUDA EQUINA: Normal, terminating at the level of T12-L1. No lower cord signal abnormality is seen. The cauda equina roots appear normal. There is no pathologic leptomeningeal enhancement. No epidural soft tissue abnormality is visible. SPINAL LEVELS: L1-L2: Mild posterior disc bulge and right paracentral disc protrusion contacting the right L2 nerve root in the subarticular zone. Mild facet arthropathy noted. No significant central canal stenosis. Moderate right foraminal narrowing. L2-L3: Moderate facet arthrosis and thickening of the ligamentum flavum with mild central canal stenosis. Posterior disc bulge contributes to [id number] left foraminal narrowing. L3-L4: Anterolisthesis with severe loss of disc height and significant central canal stenosis. Severe right foraminal narrowing due to bony spurring and exuberant facet arthropathy. L4-L5: Severe loss of disc height and high-grade central canal stenosis with the thecal sac compression. Bulky endplate spurring present. Moderate foraminal encroachment. L5-S1: Disc desiccation and broad-based posterior disc bulge with moderate facet arthrosis. No significant central canal stenosis. [id number] left foraminal narrowing with bulging disc abutting the exiting left L5 nerve root. IMPRESSION: No compression fractures or suspicious abnormal enhancement. Extensive lumbar spondylosis with a moderate leftward lumbar spinal curvature. Right paracentral disc protrusion abutting the right L2 nerve root at L1-L2. Moderate right foraminal narrowing. Degenerative disc disease at L2-L3 contributing to mild central canal stenosis and left foraminal narrowing. Severe central canal stenosis with anterior subluxations at L3-L4 and L4-L5. Severe right foraminal narrowing at L3-L4. Exuberant facet arthropathy present as well. Desiccated disc bulge and moderate facet degeneration at L5-S1. Bulging disc abuts the exiting left L5 nerve root in the foramen.
--- NOTE | 2018-02-14 16:57 | MRI REPORT ---
EXAMINATION: MRI RIGHT HIP WITH AND WITHOUT CONTRAST CLINICAL INFORMATION: Right hip pain, acute COMPARISON: CT pelvis dated 02/11/2018 TECHNIQUE: Multiplanar MR imaging was obtained through the right hip underwent 1.5 Margy magnet before and after the intravenous administration of 7.5 mL Gadavist. FINDINGS: BONES AND ARTICULAR CARTILAGE: There are small marginal osteophytes of the right acetabulum. Chondral fissuring and mild chondral thinning are noted at the acetabular roof. No discrete tears of the acetabular labrum are identified. There is mild to moderate degenerative arthritis in the pubic symphysis. Mild degenerative arthritis is also present in the left hip and bilateral SI joints. Degenerative disc disease present in the lower lumbar spine with left convex lumbar scoliosis. No fractures or stress reactions are identified. No aggressive osseous lesions are identified. No abnormal osseous enhancement. MUSCLES AND TENDONS: The iliacus tendon is completely torn at the insertion on the lesser tuberosity with proximal retraction by 3 cm. The torn margins are frayed and irregular. The psoas component of the iliopsoas tendon remains intact, though there is significant surrounding edema signal. Edema signal tracks proximally along the myotendinous junction of the iliacus tendon into the iliacus muscle. There is mild edema signal within the gluteus medius ingrid muscle near its attachment to the iliotibial band laterally. No discrete tears identified in this region. Mild tendinosis is present in the gluteus minimus and medius without tears. There is mild hamstring tendinosis with a small chronic central tear at its origin on the ischial tuberosity. This tear measures 1.8 x 1.8 cm and involves approximately one third of the tendon cross-section. There is edema signal within the right adductor compartment musculature including the pectineus, abductor brevis, and adductor longus, likely reactive to the adjacent iliacus tendon tear. Superimposed strains are possible. No additional tears are identified. There is enhancement along the region of the torn iliacus tendon which is reactive in nature. No enhancing lesions are identified. JOINT FLUID AND BURSAE: No joint effusion or bursitis. LIGAMENTUM TERES: Intact. INTRAPELVIC SOFT TISSUES: Unremarkable IMPRESSION: 1. Complete tear of the iliacus tendon component of the iliopsoas tendon at the lesser trochanter insertion with proximal retraction by 3 cm. Psoas tendon component remains intact. 2. Edema signal within the adjacent adductor musculature, likely reactive to the iliacus tear or due to a superimposed strain. 3. Mild degenerative arthritis in the hips and SI joints. Mild to moderate osteitis pubis. Degenerative disc disease and left convex lumbar scoliosis in the lower lumbar spine.
[2018-02-14 21:42] VITALS: BP 118/64
[2018-02-15 06:02] VITALS: BP 138/60
--- NOTE | 2018-02-15 09:32 | PN- Housestaff ---
Subjective Follow-up For: Groin pain Subjective: No acute events overnight. Still unable to move R leg/hip. Review of Systems Constitutional: Reports: see HPI. Objective Last 24 Hrs of Vital Signs/I&O Vital Signs Date Time Temp Pulse Resp B/P B/P Pulse O2 O2 Flow FiO2 Mean Ox Delivery Rate 02/15 1405 98.5 62 20 110/60 97 Room Air 02/15 1305 Room Air 02/15 0829 62 136/64 02/15 0829 62 136/64 02/15 0829 62 136/64 02/15 0602 97.6 54 20 138/60 95 Room Air 02/14 2142 98.8 59 16 118/64 97 Room Air 02/14 2138 59 118/64 Intake & Output 02/15 1600 02/15 0800 02/15 0000 Intake Total 800 120 120 Output Total 600 825 325 Balance 200 -705 -205 Intake, Oral 800 120 120 Number 1 Bowel Movements Output, Urine 600 825 325 Physical Exam General Appearance: Alert, Oriented X3, Cooperative Cardiovascular: Regular Rate, Normal S1, Normal S2 Lungs: Clear to Auscultation, Normal Air Movement Abdomen: Normal Bowel Sounds, Soft, No Tenderness Extremities: 2+ radial pulses. LLE 5/5 strenght. Unable to raise R hip. No pain with passive motion of hip in all diretions. Assessment/Plan Assessment: A: 87-year-old female with past medical history of breast cancer status post mastectomy, osteoarthritis, cataracts,coronary artery disease, hypertension, hypercholesterolemia, and hypothyroidism who was brought in by ambulance for severe right groin pain radiating to her right thigh. CT scan done in the ED showed no abnormality, mild degenerative changes of both hips and prominent degenerative site changes of her lower spine. Assessment and plan #Right hip/groin pain: Differentials could be avascular necrosis, osteoarthritis , bursitis, impingement, metastasis from breast cancer -CT shows evidence of degenerative changes in both hips. No fractures noted. -b/l femur xray negative -MRI Lumbar: No compression fractures or suspicious abnormal enhancement. Extensive lumbar spondylosis with a moderate leftward lumbar spinal curvature. 2. Right paracentral disc protrusion abutting the right L2 nerve root at L1-L2. Moderate right foraminal narrowing. Degenerative disc disease at L2-L3 contributing to mild central canal stenosis and left foraminal narrowing. Severe central canal stenosis with anterior subluxations at L3-L4 and L4-L5. Severe right foraminal narrowing at L3-L4. Exuberant facet arthropathy present as well. Desiccated disc bulge and moderate facet degeneration at L5-S1. Bulging disc abuts the exiting left L5 nerve root in the foramen. -MRI hip: 1. Complete tear of the iliacus tendon component of the iliopsoas tendon at the lesser trochanter insertion with proximal retraction by 3 cm. Psoas tendon component remains intact. 2. Edema signal within the adjacent adductor musculature, likely reactive to the iliacus tear or due to a superimposed strain.3. Mild degenerative arthritis in the hips and SI joints. Mild to moderate osteitis pubis. Degenerative disc disease and left convex lumbar scoliosis in the lower lumbar spine. -spoke with ortho over the phone who stated no surgery. will follow final recs before discharge to [facility]. -f/u pain control -Physical therapy consult -Placement for short-term rehabilitation. #Hyperkalemia likely secondary to dehydration - resolved -Monitor BMP -Gentle hydration with IV normal saline #hyponatremia Na 136, close to baseline 137 -cont to monitor #Continue home medications for hypertension, hypothyroidism and hypercholesterolemia #DVT prophylaxis subcutaneous Lovenox Problem List: 1. Tendon tear Pain Ratin Pain Location: R groin Pain Goal: Pain 4 or less Pain Plan: pain pathway Tomorrow's Labs & Rationales: none
--- NOTE | 2018-02-15 10:45 | PN- Att Addend ---
Attending Addendum Attending Brief Note Still having some pain Vital signs are stable no fever no new changes on physical examination. Patient was seen by physical therapy patient also had an MRI which showed a complete tear of the iliacus tendon component of the iliopsoas tendon at the lesser trochanteric insertion will get an orthopedic consultation to see what options of treatment are Intake & Output 02/15 0400 02/14 0400 02/13 0400 Intake Total 120 120 840 240 720 240 Output Total 825 218 276 9326 500 Balance -705 -205 490 -860 720 -260 Intake, Oral 120 120 840 240 720 240 Number 0 Bowel Movements Output, Urine 825 059 556 5678 500 Patient 127 lb Weight Weight Bed scale Measurement Method Laboratory Tests 02/14/18 0758: Anion Gap 8, Estimated GFR 52 L, BUN/Creatinine Ratio 28.0 H, CBC w Diff NO MAN DIFF REQ, RBC 3.88 L, MCV 100.0 H, MCH 33.0 H, MCHC 33.0, RDW 13.6, MPV 8.8, Gran % 76.4 H, Lymphocytes % 15.9 L, Monocytes % 6.6, Eosinophils % 0.8, Basophils % 0.3, Absolute Granulocytes 7.4 H, Absolute Lymphocytes 1.5, Absolute Monocytes 0.6, Absolute Eosinophils 0.1, Absolute Basophils 0 02/13/18 0735: Anion Gap 10, Estimated GFR 59 L, BUN/Creatinine Ratio 33.3 H, CBC w Diff NO MAN DIFF REQ, RBC 3.28 L, MCV 99.3 H, MCH 33.8 H, MCHC 34.0, RDW 13.2, MPV 9.0, Gran % 57.3, Lymphocytes % 30.3, Monocytes % 10.4 H, Eosinophils % 1.4, Basophils % 0.6, Absolute Granulocytes 3.6, Absolute Lymphocytes 1.9, Absolute Monocytes 0.7 H, Absolute Eosinophils 0.1, Absolute Basophils 0 Vital Signs Date Time Temp Pulse Resp B/P B/P Pulse O2 O2 Flow FiO2 Mean Ox Delivery Rate 02/15 08 62 136/64 02/15 0829 62 136/64 02/15 0829 62 136/64 02/15 0602 97.6 54 20 138/60 95 Room Air 02/14 2142 98.8 59 16 118/64 97 Room Air 02/14 2138 59 118/64 02/14 1354 98.2 66 18 118/56 94 Room Air 02/14 1216 Room Air 02/14 1209 Room Air Patient does not recall any falls or strenuous activity.
[2018-02-15 14:05] VITALS: BP 110/60
[2018-02-15 22:00] VITALS: BP 153/63
[2018-02-16 06:21] VITALS: BP 148/60
--- NOTE | 2018-02-16 07:36 | Discharge Summary ---
Visit Information Visit Dates Admission Date: 02/12/18 Discharge Date: 02/16/18 Hospital Course Course Attending Physician: Hiwot SMITH,Earl Tang Primary Care Physician: Katelynn SMITH,[employer] [facility] Course: 87-year-old woman with past medical history of breast cancer status post mastectomy, osteoporosis, cataracts, coronary artery disease, hypertension, hypercholesteremia and hypothyroidism was brought into ED for severe right groin pain radiating to her right thigh. A CT scan done in the ED showed no abnormality, except for mild degenerative changes of both hips and prominent degenerative decubitus site changes of her lower spine. Patient was admitted to the ED with intractable pain of the hip and gait difficulty. Patient was evaluated by orthopedics service and it was believed that patient's symptoms did not match the radiographic findings are physical findings in regards to her hip. Concern was raised for the source of her right hip pain could be from her lumbar spine. Following that, pain x-rays of the lumbar spine as well as MRI to assess for foraminal stenosis was obtained. Lumbar spine MRI results as below: No compression fractures or suspicious abnormal enhancement. Extensive lumbar spondylosis with a moderate leftward lumbar spinal curvature. Right paracentral disc protrusion abutting the right L2 nerve root at L1-L2. Moderate right foraminal narrowing. Degenerative disc disease at L2-L3 contributing to mild central canal stenosis and left foraminal narrowing. Severe central canal stenosis with anterior subluxations at L3-L4 and L4-L5. Severe right foraminal narrowing at L3-L4. Exuberant facet arthropathy present as well. Desiccated disc bulge and moderate facet degeneration at L5-S1. Bulging disc abuts the exiting left L5 nerve root in the foramen. Hip MRI showed: IMPRESSION: 1. Complete tear of the iliacus tendon component of the iliopsoas tendon at the lesser trochanter insertion with proximal retraction by 3 cm. Psoas tendon component remains intact. Reevaluation from orthopedic service has been requested at this time, which remains pending at the time of dictation. Patient will be discharged to short-term rehabilitation, pending orthopedic evaluation and she remained stable for discharge from medical standpoint. Full code. Regular diet. Lovenox for DVT prophylaxis. Allergies: Coded Allergies: NO KNOWN ALLERGIES (01/24/16) Disposition Summary Disposition Principal Diagnosis: Complete tear of Iliacus tendon Additional Diagnosis: Severe central canal stenosis with anterior subluxations at L3-L4 and L4-L5. Discharge Disposition: home health services Discharge Instructions General Discharge Information Code Status: Full Code Patient's Diet: Regular diet Patient's Activity: home PT Follow-Up Instructions/Appts: Please follow-up with orthopedic surgery as an outpatient. Please follow with primary care physician as an outpatient. Medications at Discharge Discharge Medications: Continue taking these medications: Levothyroxine Sodium (Levothyroxine Sodium) 75 MCG TABLET 1 Tablet ORAL DAILY Qty = 90 Comments: Last Taken:02/16/18 Time:0530 Losartan/Hydrochlorothiazide (Losartan-Hctz 100-12.5 MG Tab) 100 MG-12.5 MG TABLET 1 Tablet ORAL DAILY Qty = 90 Comments: Last Taken:LOSARTAN 02/16/18 Time:08 HCT 25MG GIVEN ONCE DAILY WHILE IN HOSPITAL LAST TAKEN: 02/16/18 @ 0830 Gluc 2KCL/Chondr/Cole Hy/Hy AC (Glucosamine & Chondroitin Cap) 375 MG-300 MG-175 MG-2 MG CAPSULE 1 Tablet ORAL TWICE DAILY Comments: NOT GIVEN IN HOSPITAL Calcium Carbonate/Vitamin D3 (Calcium 500 + D Tablet) (Unknown Strength) TABLET Unknown Dose ORAL DAILY Comments: NOT GIVEN IN HOSPITAL Multiple Vitamin (Multivitamins) 1 EACH TABLET 1 Tablet ORAL DAILY Comments: NOT GIVEN IN HOSPITAL Aspirin (Ecotrin*) 81 MG TABLET.DR 1 Tablet ORAL DAILY Comments: Last Taken:02/16/18 Time:0830 Simvastatin (Zocor*) 40 MG TABLET 1 Tablet ORAL DAILY Comments: LIPITOR 20 MG GIVEN IN HOSPITAL LAST TAKEN 02/15/18 @ 5:50 PM [place]on-3S/Dha/Epa/Fish Oil (Fish Oil 1,000 MG Softgel) (Unknown Strength) CAPSULE Unknown Dose ORAL DAILY Comments: NOT GIVEN IN HOSPITAL Metoprolol Tartrate (Metoprolol Tartrate) 25 MG TABLET 1 Tablet ORAL TWICE DAILY Comments: Last Taken:02/16/18 Time:0830 Docusate Sodium (Colace) 100 MG CAPSULE 1 Capsule ORAL DAILY Comments: Last Taken:02/16/18 Time:0830 Amlodipine Besylate (Norvasc) 5 MG TABLET 1 Tablet ORAL DAILY Comments: Last Taken:02/16/18 Time:0830 Meloxicam (Meloxicam) 15 MG TABLET 1 Tablet ORAL DAILY Qty = 30 Comments: NOT GIVEN IN HOSPITAL Amoxicillin (Amoxicillin) 500 MG CAPSULE 4 Capsule ORAL As Directed as needed for 1 HR PRIOR TO DENTAL APPT Qty = 20 Comments: NOT GIVEN IN HOSPITAL Copies To: Bran SMITH,Howard Attending MD Review Statement Documenting Attending: Wally Pace MD
--- NOTE | 2018-02-16 09:10 | PN- Housestaff ---
Subjective Follow-up For: Groin pain Subjective: No acute events overnight. Able partially raise R leg. Asking about discharge. Review of Systems Constitutional: Reports: see HPI. Objective Last 24 Hrs of Vital Signs/I&O Vital Signs Date Time Temp Pulse Resp B/P B/P Pulse O2 O2 Flow FiO2 Mean Ox Delivery Rate 02/16 1434 98.3 67 18 118/56 95 Room Air 02/16 0826 58 146/60 02/16 0826 58 146/60 02/16 0826 58 146/60 02/16 0621 97.8 58 20 148/60 94 Room Air Intake & Output 02/16 1600 02/16 0800 02/16 0000 Intake Total 800 Output Total 350 850 Balance -350 -50 Intake, Oral 800 Number 1 Bowel Movements Output, Urine 350 850 Physical Exam General Appearance: Alert, Oriented X3, Cooperative Cardiovascular: Regular Rate, Normal S1, Normal S2 Lungs: Clear to Auscultation, Normal Air Movement Abdomen: Normal Bowel Sounds, Soft, No Tenderness Extremities: able to raise R leg 45 degrees Vascular: 2+ radial Assessment/Plan Assessment: A: 87-year-old female with past medical history of breast cancer status post mastectomy, osteoarthritis, cataracts,coronary artery disease, hypertension, hypercholesterolemia, and hypothyroidism who was brought in by ambulance for severe right groin pain radiating to her right thigh. CT scan done in the ED showed no abnormality, mild degenerative changes of both hips and prominent degenerative site changes of her lower spine. Assessment and plan #Right hip/groin pain: Differentials could be avascular necrosis, osteoarthritis , bursitis, impingement, metastasis from breast cancer -CT shows evidence of degenerative changes in both hips. No fractures noted. -b/l femur xray negative -MRI Lumbar: No compression fractures or suspicious abnormal enhancement. Extensive lumbar spondylosis with a moderate leftward lumbar spinal curvature. 2. Right paracentral disc protrusion abutting the right L2 nerve root at L1-L2. Moderate right foraminal narrowing. Degenerative disc disease at L2-L3 contributing to mild central canal stenosis and left foraminal narrowing. Severe central canal stenosis with anterior subluxations at L3-L4 and L4-L5. Severe right foraminal narrowing at L3-L4. Exuberant facet arthropathy present as well. Desiccated disc bulge and moderate facet degeneration at L5-S1. Bulging disc abuts the exiting left L5 nerve root in the foramen. -MRI hip: 1. Complete tear of the iliacus tendon component of the iliopsoas tendon at the lesser trochanter insertion with proximal retraction by 3 cm. Psoas tendon component remains intact. 2. Edema signal within the adjacent adductor musculature, likely reactive to the iliacus tear or due to a superimposed strain.3. Mild degenerative arthritis in the hips and SI joints. Mild to moderate osteitis pubis. Degenerative disc disease and left convex lumbar scoliosis in the lower lumbar spine. -seen by PT who cleared for home PT -advised to f/u with ortho -discharged to Dr. Jaramillo office for percocet #Hyperkalemia likely secondary to dehydration - resolved -Monitor BMP -Gentle hydration with IV normal saline #hyponatremia Na 136, close to baseline 137 -cont to monitor #Continue home medications for hypertension, hypothyroidism and hypercholesterolemia #DVT prophylaxis subcutaneous Lovenox Problem List: 1. Groin pain 2. Tendon tear Pain Ratin Pain Location: R groi Pain Goal: Pain 4 or less Pain Plan: Pain pathway Tomorrow's Labs & Rationales: none
--- NOTE | 2018-02-16 10:05 | Cons- Orthopedic ---
General Information and HPI Consulting Request Date of Consult: 02/16/18 Requested By: Hiwot SMITH,Earl Tang History of Present Illness: 87 yr old female with right inguinal pain. denies trauma or injury. house staff ordered x-rays of right hip which showed djd/oa. no fractures noted. MRI right hip show iliacus tear. MRI of lumbar spine show L2 HNP right sided. patient denies paresthesias in right lower extremity. denies inability to move knee. has right groin pain and fiffuculty flexing hip. Allergies/Medications Allergies: Coded Allergies: NO KNOWN ALLERGIES (01/24/16) Home Med List: Amlodipine Besylate (Norvasc) 5 MG TABLET 1 TAB PO DAILY BP (Reported) Amoxicillin 500 MG CAPSULE 4 CAP PO AD PRN 1 HR PRIOR TO DENTAL APPT ( Reported) Aspirin (Ecotrin*) 81 MG TABLET.DR 1 TAB PO DAILY HEART/BLOOD (Reported) Calcium Carbonate/Vitamin D3 (Calcium 500 + D Tablet) (Unknown Strength) TABLET (Unknown Dose) PO DAILY SUPPLEMENT (Reported) Docusate Sodium (Colace) 100 MG CAPSULE 1 CAP PO DAILY STOOL SOFTENER ( Reported) Gluc 2KCL/Chondr/Cole Hy/Hy AC (Glucosamine & Chondroitin Cap) 375 MG-300 MG-175 MG-2 MG CAPSULE 1 TAB PO BID SUPPLEMENT (Reported) Levothyroxine Sodium 75 MCG TABLET 1 TAB PO DAILY THYROID (Reported) Losartan/Hydrochlorothiazide (Losartan-Hctz 100-12.5 MG Tab) 100 MG-12.5 MG TABLET 1 TAB PO DAILY BP (Reported) Meloxicam 15 MG TABLET 1 TAB PO DAILY PAIN/INFLAMMATION (Reported) Metoprolol Tartrate 25 MG TABLET 1 TAB PO BID HEART/BP (Reported) Multiple Vitamin (Multivitamins) 1 EACH TABLET 1 TAB PO DAILY SUPPLEMENT ( Reported) [place]-3S/Dha/Epa/Fish Oil (Fish Oil 1,000 MG Softgel) (Unknown Strength) CAPSULE (Unknown Dose) PO DAILY SUPPLEMENT (Reported) Simvastatin (Zocor*) 40 MG TABLET 1 TAB PO DAILY CHOLESTEROL (Reported) Past History Medical History Blood Transfusion Hx: Yes Neurological: TREMORS EENT: cataracts Cardiovascular: hypertension, hyperlipidemia Respiratory: NONE Gastrointestinal: constipation Hepatic: NONE Renal: NONE Musculoskeletal: ARTHRITIS Psychiatric: NONE Endocrine: hypothyroidism Blood Disorders: NONE Cancer(s): breast cancer [employer]/Reproductive: NONE Surgical History Pertinent Surgical History: LEFT MASTECTOMY BILAT KNEE REPLACEMENTS HYSTERECTOMY CATARACT BONE SPUR/BUNIONECTOMY L CARPAL TUNNEL REPAIR TONSILLECTOMY Psychosocial History Where Do You Live? Home Services at Home: None Smoking Status: Never Smoked ETOH Use: denies use Illicit Drug Use: denies illicit drug use Review of Systems Review of Systems: see chart Exam & Diagnostic Data Vital Signs and I&O Vital Signs Date Time Temp Pulse Resp B/P B/P Pulse O2 O2 Flow FiO2 Mean Ox Delivery Rate 02/16 08 58 146/60 02/16 0826 58 146/60 02/16 0826 58 146/60 02/16 0621 97.8 58 20 148/60 94 Room Air 02/15 2200 98.1 64 16 153/63 94 Room Air 02/15 2054 64 153/63 02/15 1405 98.5 62 20 110/60 97 Room Air 02/15 1305 Room Air Intake & Output 02/16 1600 02/16 0800 02/16 0000 02/15 1600 02/15 0800 02/15 0000 Intake Total 800 800 120 120 Output Total 350 850 600 825 325 Balance -350 -50 200 -705 -205 Intake, Oral 800 800 120 120 Number 1 1 Bowel Movements Output, Urine 350 850 600 825 325 Physical Exam: 0-100 AROM right knee. right lower extremity n/v intact. tender in right inguinal region over hip flexors. PROM right hip 90 degrees of flexion and 30 degrees of internal/external rotation. MRI shows iliacus tear mild hip djd. Assessment/Plan Assessment/Plan right hip DJD/OA right hip iliacus tear multiple HNP lumbar spine -WBAT with walker and PT to right hip. -pain meds for pain control -f/u with ortho prn Consult Acknowledgment - Thank you for your consult request.
--- NOTE | 2018-02-16 10:28 | PN- Att Addend ---
Attending Addendum Attending Brief Note No new complaints patient anxious to know what orthopedics recommendations are so we can start disposition plans. Vital signs are stable no fever abnormal changes on physical. As soon as orthopedics is to patient gives us recommendations will start disposition plans for her to go to short-term rehabilitation. Intake & Output 02/16 1600 02/16 0400 02/15 0400 02/14 0400 Intake Total 800 920 120 840 240 Output Total 250 701 2455 123 446 4026 Balance -350 -50 -505 -205 490 -860 Intake, Oral 800 920 120 840 240 Number 1 1 Bowel Movements Output, Urine 598 811 5288 063 191 2386 Vital Signs Date Time Temp Pulse Resp B/P B/P Pulse O2 O2 Flow FiO2 Mean Ox Delivery Rate 02/16 08 58 146/60 02/16 0826 58 146/60 02/16 0826 58 146/60 02/16 0621 97.8 58 20 148/60 94 Room Air 02/15 2200 98.1 64 16 153/63 94 Room Air 02/15 2054 64 153/63 02/15 1405 98.5 62 20 110/60 97 Room Air 02/15 1305 Room Air
--- NOTE | 2018-02-16 11:07 | Patient Discharge Instructions ---
Discharge Instructions General Discharge Information Special Instructions: Please follow up with your pcp in 1 week. Please follow up with orthopedic surgery in 1-2 weeks. Acute Coronary Syndrome Inclusion Criteria At DC or during hospital stay patient has or had the following: ACS DIAGNOSIS No Discharge Core Measures Meds if any: Prescribed or Continued at Discharge Meds if any: NOT Prescribed or Continued at Discharge Congestive Heart Failure Inclusion Criteria At DC or during hospital stay patient has or had the following: CHF DIAGNOSIS No Discharge Core Measures Meds if any: Prescribed or Continued at Discharge Meds if any: NOT Prescribed or Continued at Discharge Cerebrovascular accident Inclusion Criteria At DC or during hospital stay patient has or had the following: CVA/TIA Diagnosis No Discharge Core Measures Meds if any: Prescribed or Continued at Discharge Meds if any: NOT Prescribed or Continued at Discharge Venous thromboembolism Inclusion Criteria VTE Diagnosis No VTE Type NONE VTE Confirmed by (Test) NONE Discharge Core Measures - Per Current guidelines, there needs to be overlap - treatment for the first 5 days of Warfarin therapy. - If discharged on Warfarin prior to 5 days of - overlap therapy, the patient will need to be - assessed for post discharge needs including - *Post discharge parental anticoagulation - *Warfarin and/or parental anticoagulation education - *Follow up date to check INR post discharge At least 5 days overlap therapy as Inpatient No Meds if any: Prescribed or Continued at Discharge Note: Overlap Therapy is Warfarin and Anticoagulant Meds if any: NOT Prescribed or Continued at Discharge
[2018-02-16 14:34] VITALS: BP 118/56
== END 2018-02-16 14:44 | disposition home health service (06) | DRG 538 ==
LOC: ERH 22:51 → 2NB 02-12 13:09 → ERHI 02-12 13:09 → 2NB 02-12 13:09 → ENRESERV 02-12 16:56 → 2NB 02-12 18:10 → ENTRNSPT 02-12 18:27 → EDTRNSPTSTS 02-12 18:36 → EDTRNSPT 02-12 18:36 → CMPTRNSPT 02-12 18:51 → EDTRNSPT 02-12 18:51 → 2NB 02-12 19:04 → ENTRNSPT 02-12 19:19 → CMPTRNSPT 02-12 19:22 → 2NB 02-13 00:15 → ENPENDDIS 02-16 12:05 → ENTRNSPT 02-16 14:28 → EDTRNSPTSTS 02-16 14:37 → EDTRNSPT 02-16 14:37 → 2NB 02-16 14:44 → CMPTRNSPT 02-16 14:50
PROVIDERS: Emergency Medicine; Student in an Organized Health Care Education/Training Program
DX: S76.011A Strain of muscle, fascia and tendon of right hip, initial encounter (principal); E87.5 Hyperkalemia; E86.0 Dehydration; M16.11 Unilateral primary osteoarthritis, right hip; M79.651 Pain in right thigh; R25.1 Tremor, unspecified; H26.9 Unspecified cataract; I25.10 Atherosclerotic heart disease of native coronary artery without angina pectoris; I10 Essential (primary) hypertension; E78.5 Hyperlipidemia, unspecified; E03.9 Hypothyroidism, unspecified; Z79.82 Long term (current) use of aspirin; Z90.12 Acquired absence of left breast and nipple; Z85.3 Personal history of malignant neoplasm of breast; M47.896 Other spondylosis, lumbar region; M51.36 Other intervertebral disc degeneration, lumbar region; M48.061 Spinal stenosis, lumbar region without neurogenic claudication
CPT/HCPCS: 2NBSP; 72149; 75617; 36415; 72158; 73552; 81001; 82436; 97116-GO; 97162-GP; 97530-GO; 97530-GP; A9579; G8978-GP; G8979-GP; J0131; J1650; J3101; J3490